=== PATIENT | male | born 1965 | race Caucasian/White ===

== ENCOUNTER 2023-04-10 09:18 | Outpatient (CLI) | payer BC | END 2023-04-10 09:19 | disposition home or self-care (01) | LOC: SCSMRI 09:18 | PROVIDERS: ATTEND Orthopaedic Surgery | DX: M24.522 Contracture, left elbow (principal) ==

== ENCOUNTER 2023-05-12 09:18 | Outpatient (CLI) | payer BC ==
[2023-05-12 10:15] LABS: #Basophils 0.1 10x3/uL (0.0-0.2); #Eosinphils 0.7 10x3/uL (0.0-0.5); #Monocytes 0.6 10x3/uL (0.0-1.1); #Neutrophils 5.5 10x3/uL (1.5-8.4); %Basophils 0.9 % (0.0-2.0); %Eosinophils 7.8 % (0.0-6.0); %Lymphocytes 21.7 % (18.0-47.0); %Monocytes 6.4 % (0.0-10.0); %Neutrophils 62.7 % (40.0-75.0); Hematocrit 46.4 % (38.8-50.0); Hemoglobin 16.9 g/dL (13.5-17.5); Mean Corpuscular HGB CONC 36.4 g/dL (32.0-36.0); Mean Corpuscular Hemoglobin 31.2 pg (27.0-33.0); Mean Corpuscular Volume 85.8 fl (81.2-95.1); Mean Platelet Volume 9.9 fl (7.4-10.4); Platelet Count 253 10x3/uL (150-450); RBC Distribution Width 13.2 % (11.5-14.5); Red Blood Cell (RBC) Count 5.41 10x6/uL (4.32-5.72); White Blood Cell (WBC) Count 8.7 10x3/uL (3.5-10.5)
[2023-05-12 10:33] LABS: Anion Gap 15 mmol/L (10-20); BUN (Urea Nitrogen) 11 mg/dL (8.4-25.7); Calc. Creatinine Clearance 0 mL/min (70-130); Calcium 9.7 mg/dL (7.8-10.44); Carbon Dioxide 22 mmol/L (22-29); Chloride 105 mmol/L (98-107); Estimated GFR 101; Glucose 111 mg/dL (70-105); Potassium 3.7 mmol/L (3.5-5.1); Sodium 138 mmol/L (136-145)
== END 2023-05-12 09:19 | disposition home or self-care (01) ==
LOC: LABBT 09:18
PROVIDERS: ATTEND Orthopaedic Surgery
DX: Z01.818 Encounter for other preprocedural examination (principal); M24.522 Contracture, left elbow; M19.022 Primary osteoarthritis, left elbow
CPT/HCPCS: 80048; 85025; 93005; 93010